=== PATIENT | female | born 1990 | race Caucasian/White ===

== ENCOUNTER 2017-11-26 16:04 | Emergency (ER) | payer MEDICAID, SELFPAY ==
--- NOTE | 2017-11-26 16:16 | XR_ITS ---
XR chest 2V Ordering Physician: Kaylee Winter Patient Age: 27 years: Female HISTORY: ITS.REASON: COUGHproductive cough 4 days. Congestion. TECHNIQUE: PA and lateral chest. COMPARISON :No prior chest film FINDINGS The lungs are well expanded and clear with no focal pneumonia evident. The upper normal markings at the right middle lobe may reflect some mild atelectasis but no convincing pneumonia. Heart, kade and mediastinal structures satisfactory. Azygos lobe incidentally noted. Chest wall unremarkable T-spine intact. No pleural effusion. No pneumothorax. Perhaps Mild hyperexpansion IMPRESSION: Nothing definitely acute. No focal pneumonia or consolidation . Perhaps Mild hyperexpansion
[2017-11-26 16:17] VITALS: BP 116/84; PULSE 70; RESP 18; TEMP 36.6; O2SAT 99; BMI 25.0
--- NOTE | 2017-11-26 16:49 | HMH.EDUTC ---
[facility] [place] Disposition Clinical Impression: Chest congestion, Bronchitis Disposition: Home, Self-Care Condition on Discharge: Good Instructions: Acute Bronchitis Additional Instructions: * Monitor Temp. Tylenol and/or Ibuprofen as needed. ER if fever is no less than 101 despite alternating Tylenol and Ibuprofen * Encourage fluids, water, Gatorade, powerade, pedialyte if infant/toddler/or child * Warm salt water gargles for throat irritation *Warm fluids *Sore throat lozenges *Sleep elevated *humidifier or vaporizer Lots of rest Increase fluids, water, Gatorade, powerade ? Start antibiotic today. Be sure to complete entire prescription even if feeling better ? Monitor temp. Tylenol every 4 hours as needed and / or ibuprofen every 6 hours as needed ( As long as your primary care physician has told you that it ok to take both. For fever/aches/pains ER if no less than 101 despite Tylenol or Motrin ? Humidifier/vaporizer or hot steamy shower ? Inhaler every 4-6 hours as needed like we discussed. If unsure how to use it, ask pharmacist to demonstrate how. Should help open airways and improve cough, wheezing, and shortness of breath ? Mucinex during the day for your cough and cough suppressant only at night. Be sure to drink lots of water. Insurance may not cover a prescriptions for mucinex. Might be cheaper to get 400mg tablets and take 2 tablet in the morning, mid-day and evening with lots of water. Prescriptions: Albuterol Sulfate [Albuterol HFA Inhaler] 1 - 2 puffs IH Q4-6H PRN #1 inh PRN Reason: Shortness Of Breath Or Wheezing Azithromycin [Z-Elver 250mg Tab] 250 mg PO UD DOSE PK #6 tab Benzonatate [Tessalon Perle 100mg Cap] 100 mg PO TID PRN #30 cap PRN Reason: Cough Guaifenesin/Pseudoephedrne HCl [Mucinex D ER 1,200-120 mg Tab] 1 each PO Q12H #20 tab.er.12h predniSONE [Prednisone 20mg Tab] 20 mg PO BID #10 tab Referrals: Reuben Milian MD [Primary Care Provider] - Time of Disposition: 17:06 Medical Decision Making - Medical Records Medical records reviewed: Yes: I reviewed the patient's medical records. Vital Signs: 11/26/17 16:17 Temperature 97.9 F Temperature Source Temporal Artery Scan Pulse Rate [Right Brachial] 70 Respiratory Rate 18 Blood Pressure [Right Arm] 116/84 Blood Pressure Mean [Right Arm] 94 Blood Pressure Source [Right Arm] Automatic Cuff Blood Pressure Position [Right Arm] Sitting 02 Sat by Pulse Oximetry 99 Oxygen Delivery Method Room Air Orders (Tests/Meds): ORDERS Category Date Time Status Chest XR 2 view (NOT portable) [XR chest 2V] Stat Exams 11/26/17 16:16 Taken - Radiology Data #1 Image Reviewed: Yes I reviewed the patient's radiology image w/the ED provider Preliminary Findings: Normal/NAD, No Infiltrates Seen - Lenin Inquiry Pt receiving controlled substance: No Lenin was queried for this patient: No [facility] [place] HPI - General Stated complaint: Burning in lungs, coughing up yellow mucous Mode of Arrival: Ambulatory Source of Information: Patient Limitations: No Limitations Description of Symptoms (Recalled from Triage Doc. by RN): productive cough, burning in lungs HEENT Symptoms (Recalled from RN notes): No Resp Symptoms (Recalled from RN notes): Yes Skin Symptoms (Recalled from RN notes): No MS Symptoms (Recalled from RN notes): No Functional Status (Recalled from RN notes): na - Related Data Home Medications Medication Instructions Recorded Confirmed escitalopram 20 mg tablet 20 mg PO QDAY 11/03/17 Previous Rx's Medication Instructions Recorded Albuterol Sulfate [Albuterol HFA 1 - 2 puffs IH Q4-6H PRN #1 inh 11/26/17 Inhaler] Azithromycin [Z-Elver 250mg Tab] 250 mg PO UD DOSE PK #6 tab 11/26/17 Benzonatate [Tessalon Perle 100mg 100 mg PO TID PRN #30 cap 11/26/17 Cap] Guaifenesin/Pseudoephedrne HCl 1 each PO Q12H #20 tab.er.12h 11/26/17 [Mucinex D ER 1,200-120 mg Tab] predniSONE [Prednisone 20mg 20 mg PO BID #10 tab 11/10
--- NOTE | 2017-11-26 16:55 | ED_ITS ---
[facility] [place] Disposition Clinical Impression: Chest congestion, Bronchitis Disposition: Home, Self-Care Condition on Discharge: Good Instructions: Acute Bronchitis Additional Instructions: * Monitor Temp. Tylenol and/or Ibuprofen as needed. ER if fever is no less than 101 despite alternating Tylenol and Ibuprofen * Encourage fluids, water, Gatorade, powerade, pedialyte if infant/toddler/or child * Warm salt water gargles for throat irritation *Warm fluids *Sore throat lozenges *Sleep elevated *humidifier or vaporizer Lots of rest Increase fluids, water, Gatorade, powerade ? Start antibiotic today. Be sure to complete entire prescription even if feeling better ? Monitor temp. Tylenol every 4 hours as needed and / or ibuprofen every 6 hours as needed ( As long as your primary care physician has told you that it ok to take both. For fever/aches/pains ER if no less than 101 despite Tylenol or Motrin ? Humidifier/vaporizer or hot steamy shower ? Inhaler every 4-6 hours as needed like we discussed. If unsure how to use it , ask pharmacist to demonstrate how. Should help open airways and improve cough , wheezing, and shortness of breath ? Mucinex during the day for your cough and cough suppressant only at night. Be sure to drink lots of water. Insurance may not cover a prescriptions for mucinex. Might be cheaper to get 400mg tablets and take 2 tablet in the morning , mid-day and evening with lots of water. Prescriptions: Albuterol Sulfate [Albuterol HFA Inhaler] 1 - 2 puffs IH Q4-6H PRN #1 inh PRN Reason: Shortness Of Breath Or Wheezing Azithromycin [Z-Elver 250mg Tab] 250 mg PO UD DOSE PK #6 tab Benzonatate [Tessalon Perle 100mg Cap] 100 mg PO TID PRN #30 cap PRN Reason: Cough Guaifenesin/Pseudoephedrne HCl [Mucinex D ER 1,200-120 mg Tab] 1 each PO Q12H # 20 tab.er.12h predniSONE [Prednisone 20mg Tab] 20 mg PO BID #10 tab Referrals: Reuben Milian MD [Primary Care Provider] - Time of Disposition: 17:06 Medical Decision Making - Medical Records Medical records reviewed: Yes: I reviewed the patient's medical records. Vital Signs: 11/26/17 16:17 Temperature 97.9 F Temperature Source Temporal Artery Scan Pulse Rate [Right Brachial] 70 Respiratory Rate 18 Blood Pressure [Right Arm] 116/84 Blood Pressure Mean [Right Arm] 94 Blood Pressure Source [Right Arm] Automatic Cuff Blood Pressure Position [Right Arm] Sitting 02 Sat by Pulse Oximetry 99 Oxygen Delivery Method Room Air Orders (Tests/Meds): ORDERS Category Date Time Status Chest XR 2 view (NOT portable) [XR chest 2V] Stat Exams 11/26/17 16:16 Taken - Radiology Data #1 Image Reviewed: Yes I reviewed the patient's radiology image w/the ED provider Preliminary Findings: Normal/NAD, No Infiltrates Seen - Lenin Inquiry Pt receiving controlled substance: No Lenin was queried for this patient: No [facility] [place] HPI - General Stated complaint: Burning in lungs, coughing up yellow mucous Mode of Arrival: Ambulatory Source of Information: Patient Limitations: No Limitations Description of Symptoms (Recalled from Triage Doc. by RN): productive cough, burning in lungs HEENT Symptoms (Recalled from RN notes): No Resp Symptoms (Recalled from RN notes): Yes Skin Symptoms (Recalled from RN notes): No MS Symptoms (Recalled from RN notes): No Functional Status (Recalled from RN notes): na - Related Data Home Medications
[2017-11-26 17:14] VITALS: BP 127/77; PULSE 77; RESP 20; TEMP 36.9; O2SAT 96
== END 2017-11-26 17:16 | disposition home or self-care (01) ==
PROVIDERS: Emergency Provider Nurse Practitioner; Family Provider Emergency Medicine; PCP Emergency Medicine
DX: J20.9 Acute bronchitis, unspecified (principal); F41.8 Other specified anxiety disorders
CPT/HCPCS: 71046; 99202

== ENCOUNTER 2018-01-10 13:00 | Outpatient (RCR) | payer MEDICAID, SELFPAY | END 2018-01-10 13:01 | disposition home or self-care (01) | LOC: OT 13:00 | PROVIDERS: Family Provider Emergency Medicine; PCP Emergency Medicine; Visit Provider Family Medicine | DX: M25.311 Other instability, right shoulder (principal) | CPT/HCPCS: 97014; 97110; 97140; 97164; 97165; G0283 ==

== ENCOUNTER → 2018-01-31 14:29 | Outpatient (CLI) | payer MEDICAID, SELFPAY ==
--- NOTE | 2018-01-31 14:30 | XR_ITS ---
XR foot wt bearing RT 3V HISTORY: Right foot pain ORDERING PHYSICIAN: Marielena Platt DPM PATIENT AGE: 27 years COMPARISON: None FINDINGS: No fracture or dislocation. No lytic or blastic change. There is normal mineralization.. The joint spaces are well-preserved. No significant degenerative/arthritic changes. No erosive changes evident. IMPRESSION: Negative, no acute finding
== END ==
PROVIDERS: PCP Emergency Medicine; Visit Provider Podiatrist
DX: T14.8XXA Other injury of unspecified body region, initial encounter (principal)
CPT/HCPCS: 73630

== ENCOUNTER → 2018-02-15 09:35 | Outpatient (CLI) | payer MEDICAID, SELFPAY ==
--- NOTE | 2018-02-15 09:38 | MR_ITS ---
MR ankle RT wo/w con Ordering Physician: Marielena Platt DPM Patient Age: 27 years: Female HISTORY: ITS.REASON: Right ankle pain Injury, rolled ankle 7 weeks ago pain mainly evident lateral with soreness medial side as well. TECHNIQUE: Multiplanar multisequence imaging pre and postcontrast. 14 mL ProHance utilized for the postcontrast study COMPARISON :Plain films right ankle February 23, 2018 FINDINGS ... Prominent area of increased bone signal is seen throughout the medial aspect of talus reflecting bone contusion and bone injury. On Sagittal image 17 on question there may also very subtle hairline fracture meandering through medial talus.... Inferiorly this appears to begin inferior margin of anterior talus, ( just anterior to its articulation with sustentaculum hoda) and then extending in a subtle slightly serpiginous fashion to the posterior margin talus just below the posterior margin of articular surface.. Suspect very subtle microfracture line extending upward toward medial neck of talus. These features are best seen in the most suspect on the sagittal images No displacement this suspect micro-fracture.. ... Smaller but significant area bone contusion and bone injury at lateral corner of the talus best seen on coronal images. This is best seen coronal image 23, and sagittal image 20-most pronounced towards posterior aspect of the lateral talus. ... To areas Subtle minor bone edema changes lateral tibia at its articulation with fibula/interosseous region., and just this is noted on sagittal image 20 & coronal image 20 21 & axial slice 5 here at the posterior tibial fibular interosseous articulation. Moderate joint effusion at the ankle. Fluid seen bulging both posterior and anterior to the ankle joint. Slight increased fluid is seen at the subtalar joint as well. Otherwise note Mild subcutaneous edema is seen overlying the distal fibula and lateral malleolus & also scant edema overlying medial malleolus perhaps scant trace edema just above the calcaneus in the retrocalcaneal fat pad.. Very minor-equivocal here. Tibialis posterior tendon normal position posterior to the medial malleolus. It appears satisfactory sagittal views but on does have slight Hunt and perhaps slightly enlarged appearance, where it inserts upon the navicular. This patient tender here as this could reflect tendinopathy or minor interstitial injury near the posterior tibial tendon insertion.. There is some minimal fluid surrounding the flexor hallucis longus posterior to the ankle joint but the tendon itself seems to be intact And lateral ankle the peroneus brevis and longus tendons appear fairly normal signal and appearance posterior to the lateral malleolus. Pancreperoneus brevis tendon is intact. Upper normal signal the peroneus longus tendon at mid foot noted, but possibly merely reflect magic angle artifact. Upper normal enhancement is seen here postcontrast I believe the anterior talofibular ligament is intact the tibial-fibular ligament Possible Small osseous fragment just anterior to the tip of the lateral malleolus on the sagittal images. However no bony edema associated with this more likely tiny accessory ossicles and thus more likely these are old, but not really seen on recent plain film. There is some focal bone edema seen at the soft tissues just inferior to the tip of the lateral malleolus and at the lateral aspect of the subtalar joint . Postcontrast images show suggest minor enhancement in these areas of bone injury and contusion. There is also apparent enhancement at the posterior and anterior aspect of the joint which may reflect reactive synovitis. Upper normal enhancement is seen at the previous longus and brevis tendon on sagittal images as well & requires correlation IMPRESSION--
== END ==
PROVIDERS: Family Provider Emergency Medicine; PCP Emergency Medicine; Visit Provider Podiatrist
DX: M24.571 Contracture, right ankle (principal)
CPT/HCPCS: 73723; A9576

== ENCOUNTER → 2018-03-27 14:18 | Outpatient (CLI) | payer MEDICAID, SELFPAY ==
[2018-03-27 14:55] LABS: Basophils % 0.4 % (0.1-2.0); Eosinophils # 0.1 K/mm3 (0.0-0.4); Eosinophils % 0.6 % (0.1-12.0); Hematocrit 41.3 % (37.0-47.0); Hemoglobin 12.6 g/dL (12.2-16.2); Lymphocytes # 2.1 K/mm3 (0.7-4.5); Mean Corpuscular HGB Conc 30.6 g/dL (31.8-35.4); Mean Corpuscular Hemoglobin 25.8 pg (27.0-31.2); Mean Corpuscular Volume 84.3 fl (81-99); Mean Platelet Volume 9.4 fl (7.4-10.4); Monocytes # 0.2 K/mm3 (0.1-1.0); Monocytes % 3.2 % (1.7-9.3); Neutrophils # 5.3 K/mm3 (1.8-7.8); Neutrophils % 68.8 % (37.0-80.0); Platelet Count 243 K/mm3 (142-424); Red Cell Distribution Width 12.8 % (11.5-17.5); White Blood Count 7.6 K/mm3 (4.8-10.8)
[2018-03-27 15:42] LABS: Calcium 9.6 mg/dL (8.5-10.1); Chloride 106 mmol/L (98-107)
[2018-03-27 16:02] LABS: Anion Gap 20.1 mEq/L (5-15); Blood Urea Nitrogen 10 mg/dL (7-18); Carbon Dioxide 21 mmol/L (21.0-32.0); Creatinine,Serum 0.82 mg/dL (0.55-1.02); Estimated Glomerular Filt Rate 84 ml/min (>60); GFR (African American) 102 ML/MIN (>60); Glucose 86 mg/dL (74-106); Potassium 4.1 mmoL/L (3.5-5.1); Sodium 143 mmol/L (136-145)
[2018-03-27 16:04] LABS: HCG,Quantitative 0 mIU/mL
[2018-03-30 06:17] LABS: Vitamin D 25 Hydroxy 36.9 ng/mL (30.0-100.0)
== END ==
PROVIDERS: Visit Provider Podiatrist
DX: Z01.818 Encounter for other preprocedural examination (principal); M25.371 Other instability, right ankle
CPT/HCPCS: 36415; 80048; 82652; 84702; 85025; 93005

== ENCOUNTER → 2018-04-18 11:05 | Outpatient (CLI) | payer MEDICAID, SELFPAY ==
[2018-04-20 06:04] LABS: Hep B Surface Ab, Qual Reactive (.)
== END ==
PROVIDERS: Visit Provider Physician Assistant
DX: Z00.00 Encounter for general adult medical examination without abnormal findings (principal)
CPT/HCPCS: 36415; 86706

== ENCOUNTER → 2018-04-27 11:10 | Outpatient (CLI) | payer MEDICAID, SELFPAY ==
--- NOTE | 2018-04-27 11:14 | XR_ITS ---
XR ankle wt bearing RT min 3V HISTORY: ITS.REASON: post-op ORDERING PHYSICIAN: Marielena Platt DPM PATIENT AGE: 27 years Comparison: 03/29/2018 FINDINGS: Comparison made previous right ankle films in the posterior splint from 03/29/2018. Irregular opacities are again seen in the talus, has there been a subchondral plasty with bone filler injected? This could explain the unusual opacities in the soft tissues just anterior to the tibial talar articulation. The medial and lateral malleolus appear intact and the ankle mortise appears grossly normal. There is a tiny area of relative radiolucency of the lateral dome of the talus but the cortical margin is intact and this likely is normal talus with the surrounding more high density bone filler adjacent. IMPRESSION: Postsurgical changes as noted
--- NOTE | 2018-04-27 11:14 | XR_ITS ---
XR foot wt bearing RT 3V Ordering Physician: Marielena Platt DPM Patient Age: 27 years: Female HISTORY: ITS.REASON: post-op TECHNIQUE: 3 views right foot COMPARISON :01/31/2018 right foot comparison As well as 04/27/2018 right ankle comparison.] FINDINGS Prior MRI 02/15/2018 showed signal abnormalities at the lateral corner of the talus. Suspect there is been interval procedure in this region with a injection of material which is resulted in some radio opaque round collections anterior to the ankle joint as well as possibly just beneath the lateral aspect talus . Features described on the recent right ankle series Remainder of the right foot appears intact. The joint spaces well-maintained. Toes and metatarsals intact. Tarsals appear similar. There may be some mild disuse osteoporosis noted in the periarticular lucency at head of metatarsals when compared to January. IMPRESSION: Post procedure changes seen in the region of the talus with ovoid radiopaque material collections anterior to the ankle joint likely related to such. The right foot remains intact with some what I believe is some mild disuse osteopenia.
== END ==
PROVIDERS: PCP Emergency Medicine; Visit Provider Podiatrist
DX: Z98.890 Other specified postprocedural states (principal)
CPT/HCPCS: 73610; 73630

== ENCOUNTER → 2018-06-21 13:17 | Outpatient (CLI) | payer MEDICAID, SELFPAY ==
--- NOTE | 2018-06-21 13:20 | XR_ITS ---
XR ankle wt bearing RT min 3V HISTORY: Follow-up surgery/pain ITS.REASON: post-op views ORDERING PHYSICIAN: Marielena Platt DPM PATIENT AGE: 27 years Comparison: 04/27/2018 FINDINGS: Postsurgical changes once again noted with its radio opacities along the anterior aspect of the ankle joint with questionable lucent defect along the talus laterally versus artifact from the overlying bone opacities. Increased density noted in the region of the talar dome and may be related to prior subchondral plasty. IMPRESSION: Overall no significant change in the postsurgical findings
--- NOTE | 2018-06-21 13:20 | XR_ITS ---
XR foot wt bearing RT 3V HISTORY: ITS.REASON: post-op views ORDERING PHYSICIAN: Marielena Platt DPM PATIENT AGE: 27 years COMPARISON: None FINDINGS: Post procedure changes seen in the region of the talus with ovoid radiopaque material collections anterior to the ankle joint likely related to such. This has a similar appearance compared to the previous exam. There is mild generalized osteopenia of the foot. Otherwise negative. IMPRESSION: Postprocedural changes in the anterior aspect of the talus with diffuse osteopenia not significant change
== END ==
PROVIDERS: PCP Emergency Medicine; Visit Provider Podiatrist
DX: Z98.890 Other specified postprocedural states (principal)
CPT/HCPCS: 73610; 73630

== ENCOUNTER 2018-07-10 13:30 | Outpatient (RCR) | payer MEDICAID, SELFPAY ==
--- NOTE | 2018-05-16 11:18 | HMH.PTOPEV ---
PT Outpatient Evaluation Rehab PT Outpatient Evaluation Start: 05/16/18 11:03 Freq: Status: Active Protocol: Document 05/16/18 11:03 LEX (Rec: 05/16/18 11:18 LEX [id number]) Electronically Signed By Ramiro Gore, PT 05/16/18 11:03 Outpatient Therapy Subjective History Subjective History Pt presents s/p R ankle ORIF sx. for fx'd talus, avulsion fx of navicular on 03/29/18. Pt reports initial injury occurred on 12/24/17 during a fall. Pt reports no R ankle pain currently, however, has marked ROM and strength deficits d/t immobilization since sx. Chief Complaint Stiff Swelling Weakness Symptom Type Ache Dull Symptoms Relieved By Activity Symptoms Aggravated By Standing Walking Prior Functional Limitations Standing Walking Current Functional Limitations Standing Squatting Walking Stairs Symptom Description Intermittent Level of pain today (0-10) 0 Pain scale - at its best (0-10) 0 Pain scale - at its worst (0-10) 8 Ankle/Foot Eval Gait Observation General Gait Pattern Observation Wide Based Gait Palpation Tenderness right Ankle/Foot Palpation Findings Tenderness Ankle/Foot Palpation Overall Comment 2-3/4 ATF TTP positive PTF TTP positive CF TTP positive Deltoid ligament TTP positive ROM left Ankle/Foot Dorsiflexion w/Knee Extended 0-15 Active Range Motion (degrees) Ankle/Foot Plantar Flexion Active Range 0-50 of Motion (degrees) Ankle/Foot Eversion Active Range of 0-20 Motion (degrees) Ankle/Foot Inversion Active Range of 0-50 Motion (degrees) right Ankle/Foot Dorsiflexion w/Knee Extended 0-5 Active Range Motion (degrees) Ankle/Foot Plantar Flexion Active Range 0-20 of Motion (degrees) Ankle/Foot Eversion Active Range of 0-10 Motion (degrees) Ankle/Foot Inversion Active Range of 0-20 Motion (degrees) MMT left Ankle Dorsiflexion Strength Grade 5 Normal Ankle Plantarflexion Strength Grade 5 Normal Foot Eversion Strength Grade 5 Normal Foot Inversion Strength Grade 5 Normal right Ankle Dorsiflexion Strength Grade 4-
--- NOTE | 2018-06-14 14:49 | HMH.RHREAS ---
Rehab Reassessment Rehab OP Re-assessment Start: 06/14/18 14:18 Freq: Status: Active Protocol: Document 06/14/18 14:18 KATEMILY (Rec: 06/14/18 14:49 KATEMILY [id number]) Electronically Signed By Ramiro Gore, PT 06/14/18 14:18 Rehab Re-assessment Subjective Subjective PT REPORTS 0-2/10 R ANKLE/FOOT PAIN ON VAS, AND FEELS '80%' BETTER SINCE I EVAL Objective Objective Notes AROM: R ANKLE DF 0-12, PF 0-40 , EVR 0-15, INV 0-40 MMT: R ANKLE DF 4+/5, PF 4+/5, INV 4/5, EVR 4/5 TTP: MED MALL. R 2/4, 1ST METHEAD PROX 2-3/4 FIGURE 8: 57CM R Assessment Progress Assessment Progressing as Expected Assessment Notes PT W/IMPROVED STRENGTH, ROM, AND TTP Patient goals met STG'S 02/11 LTG'S 01/17 Goals Not Met LTG'S 03/19 Plan Plan Pt to cont. w/skilled PT to make further improvements w/ ROM, strength, and TTP to allow for optimal function Frequency of Therapy 1-2x/wk Duration of therapy 3-4 wks Time and Billing Re-Eval Time 15 Re-Eval Billing Units 1 PHYSICIAN CERTIFICATION: I certify the specified therapy services for Padma Conklin are required, authorized, and reviewed every 30 days.
== END 2018-07-10 13:31 | disposition home or self-care (01) ==
LOC: PT 13:30
PROVIDERS: Family Provider Emergency Medicine; PCP Emergency Medicine; Visit Provider Podiatrist
DX: Z98.890 Other specified postprocedural states (principal); M25.373 Other instability, unspecified ankle; S92.11 Fracture of neck of talus; S92.251A Displaced fracture of navicular [scaphoid] of right foot, initial encounter for closed fracture; M76.71 Peroneal tendinitis, right leg
CPT/HCPCS: 97010; 97014; 97016; 97110; 97112; 97140; 97163; 97164; G0283

== ENCOUNTER → 2018-09-11 13:30 | Outpatient (CLI) | payer MEDICAID, SELFPAY ==
--- NOTE | 2018-09-11 13:32 | XR_ITS ---
XR ankle wt bearing RT min 3V Ordering Physician: Marielena Platt DPM Patient Age: 28 years: Female HISTORY: ITS.REASON: post-op views postop follow-up ankle arthrotomy subchondral plasty, previous tendon repair synovectomy. & Membrane graft 03/29/2018 TECHNIQUE: Weightbearing right ankle 3 views COMPARISON :06/21/2018 04/27/2018 FINDINGS FINDINGS: Postsurgical changes once again noted with its radio opacities alongthe anterior aspect of the ankle joint and possibly within the talus itself.. This radiopaque bone filler material likely,leaked out slightly in front of talus with recent procedure. Overall appears similar to previous studies not slightly regression of some of the smaller radiopaque densities immediately anterior to the ankle joint.. Previously there is question of subtle lucency at the lateral corner of the talus,. This is less evident today.. This region slightly sclerotic appearance perhaps a smaller lucency at the lateral corner, dome of talus. Question related to prior procedures?. The ankle mortise appears intact. Smooth congruent appearance to the dome of talus on these views otherwise. Talus laterally versus artifact from the overlying bone opacities. Increased. IMPRESSION: Again postsurgical changes at the ankle noted. No significant nor prominent change Question Subtle lucency at the lateral corner talar dome if anything less evident today, with more sclerotic appearance here today
== END ==
PROVIDERS: PCP Emergency Medicine; Visit Provider Podiatrist
DX: Z98.890 Other specified postprocedural states (principal)
CPT/HCPCS: 73610

== ENCOUNTER → 2018-10-23 13:10 | Outpatient (CLI) | payer MEDICAID, SELFPAY ==
[2018-10-25 13:05] LABS: Varicella Zoster IgG 474 index (Immune >165)
== END ==
PROVIDERS: Visit Provider Emergency Medicine
DX: R76.0 Raised antibody titer (principal)
CPT/HCPCS: 36415; 86787

== ENCOUNTER → 2018-11-02 14:48 | Outpatient (CLI) | payer MEDICAID, SELFPAY ==
[2018-11-02 16:08] LABS: Anion Gap 12.1 mEq/L (5-15); Blood Urea Nitrogen 12 mg/dL (7-18); Calcium 8.8 mg/dL (8.5-10.1); Carbon Dioxide 27 mmol/L (21.0-32.0); Chloride 103 mmol/L (98-107); Creatinine,Serum 0.87 mg/dL (0.55-1.02); Estimated Glomerular Filt Rate 78 ml/min (>60); GFR (African American) 95 ML/MIN (>60); Glucose 97 mg/dL (74-106); Potassium 4.1 mmoL/L (3.5-5.1); Sodium 138 mmol/L (136-145)
[2018-11-05 17:15] LABS: Rubella Antibodies, IgG 1.14 index (Immune >0.99)
== END ==
PROVIDERS: Dermatology; Visit Provider Physician Assistant
DX: L70.8 Other acne (principal); Z78.9 Other specified health status
CPT/HCPCS: 36415; 80048; 86762

== ENCOUNTER → 2019-04-10 15:19 | Outpatient (CLI) | payer MEDICAID, SELFPAY ==
--- NOTE | 2019-04-10 15:25 | XR_ITS ---
XR ankle wt bearing RT min 3V HISTORY: Pain, follow-up surgery ITS.REASON: postop follow up ORDERING PHYSICIAN: Marielena Platt DPM PATIENT AGE: 28 years Comparison: 09/11/2018 FINDINGS: The remains radio opaque material anterior to the talar neck. Increased density also noted along the anterior aspect of the talar dome somewhat less apparent compared to the previous study. The joint spaces well-preserved. There remains good alignment. IMPRESSION: Postsurgical changes at the ankle joint, not significant change
== END ==
PROVIDERS: PCP Emergency Medicine; Visit Provider Podiatrist
DX: Z98.890 Other specified postprocedural states (principal)
CPT/HCPCS: 73610

== ENCOUNTER → 2019-06-14 17:59 | Outpatient (CLI) | payer MEDICAID, SELFPAY ==
--- NOTE | 2019-06-14 18:06 | XR_ITS ---
PROCEDURE: XR ANKLE WT BEARING RT MIN 3V CLINICAL INDICATION: pain Pain and swelling, previous surgery COMPARISON: ANKLE 3V RT from 12/24/2017 ANKCMRT XR ankle RT min 3V from 03/29/2018 [id number] XR ankle wt bearing RT min 3V from 04/27/2018 [id number] XR ankle wt bearing RT min 3V from 06/21/2018 FINDINGS: Rounded calcific densities are once again noted anterior to the ankle joint with questionable lucent defects of the talus laterally. Please correlate as the patient's previous surgical history. No acute fracture or dislocation and no significant change from the previous exams. IMPRESSION: No change in the opacities anterior to the ankle joint with possible postsurgical changes of the talus Dictated by: Shahid Solis MD 06/14/2019 19:03 Electronically signed by Shahid Solis MD in [place] 06/14/2019 19:03
== END ==
PROVIDERS: PCP Emergency Medicine; Visit Provider Podiatrist
DX: M25.571 Pain in right ankle and joints of right foot (principal)
CPT/HCPCS: 73610

== ENCOUNTER → 2020-05-06 16:45 | Outpatient (CLI) | payer OTHER, SELFPAY ==
[2020-05-08 10:11] LABS: FSH 5.2 mIU/mL (.); LH 12.1 mIU/mL (.)
[2020-05-10 05:11] LABS: Testosterone, Total, LC/MS 21.3 ng/dL (10.0-55.0)
[2020-05-10 19:22] LABS: Testosterone,Free 2.4 pg/mL (0.0-4.2)
== END ==
PROVIDERS: Visit Provider Dermatology
DX: L70.8 Other acne (principal)
CPT/HCPCS: 36415; 82626; 83001; 83002; 83498; 84144; 84402; 84403